=== PATIENT | female | born 1960 | race Caucasian/White ===

== ENCOUNTER 2016-06-24 18:26 | Emergency (ER) | payer SELFPAY ==
[~2016-06-24] VITALS: Ht 154.9 cm; Wt 104.5 kg
[~2016-06-24 18:26] MED LIST: CHOL400L PO; EST1 PO; FURO20TA PO; IMIP25TA7 PO; K20 PO; LISI20TA PO; [UNRECOGNIZED DRUG - CODE] PO
[2016-06-24 18:30] VITALS: BP 144/99; PULSE 96; RESP 18; O2SAT 99
--- NOTE | 2016-06-24 19:14 | ED.REPORT ---
HPI-Abd Pain F 40 and Over Date of Service Jun 24, 2016 ED Provider: Franc Dee DO Ms. Beal is a 55 y/o woman who presents today for abdominal bloating and vaginal bleeding. Abdominal pain in suprapubic. Small amount of vaginal that started yesterday. Bright right blood from vagina. Today only spotting. Sees it from wiping. Feels pressure in vagina for the past couple of months along with abdominal bloating. Gagging and vomiting more frequently in the past few months but has been present for 10 years. Had hysterectomy 10 years ago. She has dysuria, urine frequency, and urine urgency. No diarrhea or constipation. No melena, hematochezia, or hematemesis. No breast pain or nipple discharge. No vaginal discharge or odor. Pap smear yearly but had dysplasia years ago prior to hysterectomy. Pt reports a total hysterectomy and oophorectomy and believes cervix was removed as well. Not sexually active. No colonoscopy. Has been taking estrogen for 10 years but has noticed hot flashes. Nursing Notes Stated Complaint: BLEEDING Chief Complaint: Female Abdominal Pain Nursing Notes Reviewed: Yes Allergies: Coded Allergies: Penicillins (Verified Allergy, Unknown, HIVES, 06/24/16) Scheduled CHOLECALCIFEROL-Expunged Drug, Do Not Renew! (VITAMIN D3-Expunged Drug, Do Not Renew!) 400 Unit/5 Ml Liquid 400 UNIT PO DAILY Estradiol-Expunged Drug, Do Not Renew! (Estrace-Expunged Drug, Do Not Renew!) 1 Mg Tablet 1 MG PO DAILY Furosemide-Expunged Drug, Do Not Renew! (Lasix-Expunged Drug, Do Not Renew!) 20 Mg Tablet 20 MG PO AM Imipramine-Expunged Drug, Do Not Renew! (Imipramine-Expunged Drug, Do Not Renew! ) 25 Mg Tablet 200 MG PO HS Lisinopril-Expunged Drug, Do Not Renew! (Lisinopril-Expunged Drug, Do Not Renew! ) 20 Mg Tablet 20 MG PO DAILY Potassium Chl-Expunged Drug, Do Not Renew! (Q-Itp-Bclbsloh Drug, Do Not Renew!) 20 Meq Tab.er.prt 20 MEQ PO DAILY VITAMIN E-Expunged Drug, Do Not Renew! (VITAMIN E-Expunged Drug, Do Not Renew!) 200 Unit Capsule 400 UNIT PO DAILY General Time Seen by MD: 19:11 Chief Complaint Vaginal bleeding Hx Obtained From: Patient Sudden in Onset?: Yes Past Medical History Past Medical History cymbalta once daily Reports: Asthma, Hypertension Past Surgical History hysterectomy right elbow left knee cyst on neck removed Reports: Appendectomy, Tonsillectomy Smoking History Current Every Day Smoker (1/2 ppd for 25 years) Social History Alcohol Use: "Social" (1 x year) Drug Use: Denies drug use Ambulatory Status Independent Review of Systems Basic Review of Systems Eyes: Vision NL, No discharge ENT: Hearing NL, No pain, No nasal congestion, No pharyngeal pain Neurologic: NL mental status, No weakness, No numbness Psychiatric: Normal thought content Constitutional: Reports: Chills, Denies: Fever, Recent wt loss, Weakness - generalized Cardiovascular: Denies: Chest pain GI: Reports: Abdominal pain, Denies: Bloody/tarry stool, Constipation, Diarrhea, Dysphagia, Hematemesis, Hematochezia, Melena, Nausea Female: Reports: Dysuria, Pelvic pain, Urinary frequency, Urinary urgency, Vaginal bleeding - abnl, Denies: Incontinence Physical Exam Vital Signs Vital Signs (First) Date Time Temp Pulse Resp B/P Pulse Ox O2 Delivery O2 Flow Rate FiO2 06/24/16 18:30 37.2 96 18 144/99 99 Room Air Initial VS: Reviewed, Vital signs abnormal Head / Eyes: Atraumatic, Normocephalic, PERRL ENT: Mucous membranes moist, Conjunctiva normal, No scleral icterus Neck: Supple, Non-tender, Full range of motion Neurologic: Alert, Oriented, Nonfocal Psychiatric: Mood/affect normal, Behavior normal, Normal thought content Respiratory / Chest: Breath sounds NL, Breath sounds = bilat, No respiratory distress, No rales, No rhonchi, No wheezing Cardiovascular: Heart rate NL, Regular rhythm, Heart sounds NL, No gallop, No murmurs, No rubs Abdomen: Soft, No guarding, No rebound, BS normoactive Tenderness/Guarding/Rebound: Positive: Tender suprapubic Female Genitourinary: Curriculum Developer present, External genitalia NL, No bleeding, No discharge, No cervical motion tend (pt started retching during pelvic exam), No foreign body, No adnexal mass, No uterine mass, Perineal skin NL Interpretation & Diagnostics Interpretation & Diagnostics: CT abdomen and pelvis with contrast: IMPRESSION: 1. Cholelithiasis. 2. Hepatic steatosis. 3. Small hiatal hernia. 4. Status post hysterectomy. Dictated by: Carly Medrano MD, PhD on 06/24/2016 at 21:18 Approved by: Carly Medrano MD, PhD on 06/24/2016 at 21:18 Lab Results Interpretation Result Diagram: 06/24/16 1911 06/24/16 1911 Test 06/24/16 19:11 06/24/16 19:53 White Blood Count 8.4th/mm3 (3.8-10.1) Red Blood Count 4.87mil/mm3 (3.90-5.20) Hemoglobin 14.2g/dL (12.0-15.6) Hematocrit 41.7% (35.0-46.0) Mean Corpuscular Volume 85.6fL (81-100) Mean Corpuscular Hemoglobin 29.2pg (27.0-35.0) Mean Corpuscular Hemoglobin Concent 34.1% (32.0-37.0) Red Cell Distribution Width 12.7% (12.3-15.4) Platelet Count 250bil/L (150-400) Neutrophils (%) (Auto) 57.4% (40-74) Lymphocytes (%) (Auto) 29.0% (14-46) Monocytes (%) (Auto) 11.1% (4-12) Eosinophils (%) (Auto) 1.9% (0-5) Basophils (%) (Auto) 0.4% (0-3) Sodium Level 136mEq/L (134-144) Potassium Level 4.2mEq/L (3.5-5.2) Chloride Level 98mEq/L (97-108) Carbon Dioxide Level 24mmol/L (18-29) Blood Urea Nitrogen 14mg/dL (6-24) Creatinine 0.68mg/dL (0.57-1.00) Estimat Glomerular Filtration Rate 129mL/min (>59) Glucose Level 160mg/dL (60-99) Calcium Level 9.5mg/dL (8.5-10.1) Total Bilirubin 0.3mg/dL (0.0-1.2) Aspartate Amino Transf (AST/SGOT) 20U/L (0-50) Alanine Aminotransferase (ALT/SGPT) 30U/L (0-32) Alkaline Phosphatase 75U/L (25-150) Total Protein 7.4g/dL (6.4-8.4) Albumin 4.0g/dL (3.4-5.0) Hold [place] Top Tube Received (Received) Urine Color Yellow (YELLOW) Urine Appearance Hazy (CLEAR,HAZY) Urine pH 5.5 (5.0-8.0) Urine Specific [place] 1.024 (1.003-1.035) Urine Protein Negativemg/dL (NEG,TRACE) Urine Glucose (UA) Negativemg/dL (NEGATIVE) Urine Ketones Negativemg/dL (NEGATIVE) Urine Occult Blood Negative (NEGATIVE) Urine Nitrite Negative (NEGATIVE) Urine Bilirubin Negative (NEGATIVE) Urine Urobilinogen Normalmg/dL (NORMAL) Urine Leukocyte Esterase Small (NEGATIVE) Urine RBC 0-2/hpf (0-2) Urine WBC 6-10/hpf (0-5) Urine Epithelial Cells Moderate/hpf (NONE-MOD) Urine Crystals None seen (NONE SEEN) Urine Bacteria Moderate/hpf (NONE-FEW) Urine Hyaline Casts None/lpf (NONE) Urine Granular Casts None seen (NONE SEEN) Urine Waxy Casts None seen (NONE SEEN) Urine Red Blood Cell Casts None seen (NONE SEEN) Urine White Blood Cell Casts None seen (NONE SEEN) Urine Mucus None seen (None Seen) Urine Trichomonas None seen (NONE SEEN) Urine Yeast None (NONE SEEN) Urinalysis Comment None Urine Culture Reflexed Indicated Re-Eval/Medical Decision Med Decision/Clinical Course 1. Vaginal bleeding -CBC WNL -No vaginal bleeding visualized during exam 2. Vomiting -CMP WNL -CT abdomen and pelvis with contrast showed a gallstone and fatty liver Discharge & Departure Primary Impression: Vaginal bleeding Additional Impression: Nausea & vomiting Vomiting type: unspecified Vomiting Intractability: non-intractable Qualified Code: R11.2 - Nausea with vomiting, unspecified Disposition: Home Discharge Condition All VS Reviewed: Yes Condition: Stable Patient Instructions: Cholelithiasis (GEN) Additional Instructions: The CT scan done today of your abdomen and pelvis showed 1 gallstone in your gallbladder and fatty liver. Try to avoid fatty food and greasy, fried food in your diet. Watch for right sided abdominal pain, fever, chills, and persistent vomiting. Take hydrocodone-acetaminophen 5 mg/325 mg 1-2 tablets by mouth every 6 hours as needed for pain. Do not take with Tylenol, alcohol, other drugs, or while driving. You can take ondansetron 8 mg dissolve 1 tablet on your tongue every 12 hours as needed for nausea. Follow up with your home health specialist to further discuss the vaginal bleeding in 1 week. I have referred you to gastroenterology for the gagging and vomiting that you have been experiencing. You will be notified if your urine culture shows that you have a bladder infection and need antibiotics. Thank you for your patience today. Referrals: Savana Bailey (PCP) Mary Díaz MD 1 Week Vaginal bleeding for 2 days and pelvic pain [facility] GASTROINTESTINAL Other Chronic, worsening nausea and vomiting Attending Statement I personally took a history performed a physical examination per I concur with the note above. Pain is not adequately treated. Acute surgical emergency has been ruled out. Patient is comfortable and feels ready to be discharged home. Short course of opiates and close outpatient follow-up recommended. copies to: Mary Díaz MD, Marissa L DO Jun 24, 2016 19:14 Franc Dee DO Jun 26, 2016 18:22
[2016-06-24 19:24] LABS: BASOPHILS % (AUTO) 0.4 % (0-3); EOSINOPHILS % (AUTO) 1.9 % (0-5); MONOCYTES % (AUTO) 11.1 % (4-12); Mean Corpuscular Hemoglobin 29.2 pg (27.0-35.0); Mean Corpuscular Volume 85.6 fL (81-100); NEUTROPHILS % (AUTO) 57.4 % (40-74); Platelet Count 250 bil/L (150-400)
[2016-06-24 20:05] LABS: APPEARANCE,URINE HAZY (CLEAR,HAZY); COLOR,URINE YELLOW (YELLOW); OCCULT BLOOD,URINE NEGATIVE (NEGATIVE); PH,URINE 5.5 (5.0-8.0); UROBILINOGEN,URINE NORMAL (NORMAL)
--- NOTE | 2016-06-24 21:20 | DRSVH ---
PROCEDURE: CT ABDOMEN AND PELVIS WITH CONTRAST ([id number]) INDICATIONS: vaginal bleeding, pelvic pain, vomiting TECHNIQUE: After the administration of intravenous contrast, 5 mm thick sections acquired from the diaphragm to the symphysis. 5 mm coronal and sagittal reformats were acquired. For radiation dose reduction, the following was used: automated exposure control, adjustment of mA and/or kV according to patient siz e. COMPARISON: None. FINDINGS: Image quality: Excellent. ABDOMEN: Lung bases: Lung bases are clear. Heart size is normal. Solid organs: Liver and spleen are normal in size and enhancement. Diffuse fatty infiltration the li jostin is noted. Gallbladder contains a calcified gallstone.. Biliary system is non dilated. Pancreas enhances normally. No adrenal nodules. Kidneys demonstrate normal size and enhancement, without hyd ronephrosis. Peritoneum and bowel: Bowel loops demonstrate normal wall thickness and caliber. No free fluid or a ir. Nodes and vessels: No retroperitoneal or mesenteric adenopathy by size criteria. Aorta and inferior vena cava are normal in size. Miscellaneous: No ventral hernias. PELVIS: Genitourinary: Bladder wall thickness is normal. Uterus and adnexa are surgically absent. Miscellaneous: No inguinal hernias or adenopathy. Bones: No suspicious bony lesions. No vertebral body compression fractures. Spine degenerative disc disease and facet arthropathy noted. Grade 1 L5-S1 isthmic spondylolisthesis noted. IMPRESSION: 1. Cholelithiasis. 2. Hepatic steatosis. 3. Small hiatal hernia. 4. Status post hysterectomy. Dictated by: Carly Medrano MD, PhD on 06/24/2016 at 21:18 Approved by: Carly Medrano MD, PhD on 06/24/2016 at 21:18
[2016-06-24] MEDS ORDERED: _HYDROcodone/APAP 5-325 mg Tablet PO PRN (22:00)
[2016-06-24 23:02] VITALS: BP 145/92; PULSE 94; RESP 16; O2SAT 97
== END 2016-06-24 23:00 | disposition home or self-care (01) ==
LOC: SED 18:26
DX: N93.9 Abnormal uterine and vaginal bleeding, unspecified (principal); R11.2 Nausea with vomiting, unspecified; R30.0 Dysuria; R35.0 Frequency of micturition; R39.15 Urgency of urination; J45.909 Unspecified asthma, uncomplicated; I10 Essential (primary) hypertension; F17.200 Nicotine dependence, unspecified, uncomplicated; Z90.711 Acquired absence of uterus with remaining cervical stump; Z88.0 Allergy status to penicillin
CPT/HCPCS: 36415; 74177; 80053; 81000; 85025; 87086; 87088; 99284; Q9967

== ENCOUNTER 2016-10-18 10:06 | Inpatient (IN) | payer SELFPAY ==
[2016-10-18] VITALS (8 sets, daily range): BP systolic 121–153; BP diastolic 58–86; PULSE 81–110; RESP 16–20; O2SAT 92–97
[~2016-10-18] VITALS: Ht 154.9 cm; Wt 110.2 kg
[2016-10-18] MEDS ORDERED: 0.9% Sodium Chloride 1,000 ML IV ONE (10:29)
[2016-10-18] MEDS ORDERED: Ondansetron 2 mg/mL 2 mL Inj IVPUSH ONE (10:30)
--- NOTE | 2016-10-18 10:33 | ED.REPORT ---
HPI-Abd Pain F 40 and Over Date of Service October 18, 2016 ED Provider: Gavin Horne MD 56 y/o female with a hx of HTN presents to the ED complaining of waxing and waning abdominal pain, onset last night. She describes the pain as cramping and burning sensation. She rates the pain significantly more than 10 out of severity and reports that laying down flat exacerbates her pain. Associated sx include 2-3 episodes of bloody diarrhea, nausea, vomiting, diaphoresis, left leg swelling, and facial swelling. The pt denies any recent travels or contacts with similar sx including diarrhea. Nursing Notes Stated Complaint: BLOODY STOOL,ABD PAIN,VOMITING Chief Complaint: Female Abdominal Pain Nursing Notes Reviewed: Yes ([employer] not reconciled) Allergies: Coded Allergies: Penicillins (Verified Allergy, Unknown, HIVES, 06/24/16) General Time Seen by MD: 10:29 Chief Complaint Abdominal pain Hx Obtained From: Patient Arrived By: Walk-in Sudden in Onset?: Yes Onset Occurred: Yesterday Symptom Duration: Waxes and wanes Location: : LLQ: RLQ Quality: Painful Radiation: : Does not radiate Severity: Current: Moderate Severity: Maximum: Severe Recent Healthcare: Recent doctor visit Similar Sx Previous: No Past Medical History Past Medical History Notes: cymbalta once daily Past Medical History Reports: Asthma, Hypertension Past Surgical History hysterectomy right elbow left knee cyst on neck removed Emergent cardiac catheterization December 2011 with concern for initial ST segment elevation DC on EKG, but there was minimal coronary disease, EF was normal, and was elevated but thought secondary to vasospasm Reports: Appendectomy, Tonsillectomy Smoking History Current Every Day Smoker Social History Alcohol Use: "Social" Drug Use: Denies drug use Ambulatory Status Independent Review of Systems GI: Reports: Abdominal pain, Diarrhea (Bloody), Nausea, Vomiting Musculoskeletal: Reports: Extremity swelling Complete sys rev & neg: except as marked. Skin: Reports Diaphoresis Physical Exam Vital Signs Vital Signs (First) Date Time Temp Pulse Resp B/P Pulse Ox O2 Delivery O2 Flow Rate FiO2 10/18/16 10:12 36.7 110 20 153/86 97 10/18/16 15:49 Room Air Initial VS: Reviewed, Vital signs abnormal (tachycardic) Head / Eyes: Atraumatic, Normocephalic, PERRL ENT: Mucous membranes moist, Conjunctiva normal, No scleral icterus Neck: Supple, Non-tender, Full range of motion Skin: Warm, Dry, No cyanosis Neurologic: Alert, Oriented, Nonfocal General/Constitutional: Awake, Alert, Cooperative Distress / Hydration: Positive: Distress moderate Behavior: Positive: Tearful Uncomfortable Cardiovascular: Regular rhythm, Heart sounds NL, No murmurs Heart Rate / Rhythm: Positive: Tachycardia No visible DVT Mild left leg edema Abdomen: Atraumatic, Soft, No guarding, No rebound Tenderness/Guarding/Rebound: Positive: Tender LLQ... (Mild), Negative: Tender flank L, Tender flank R Lower Extremity / Pelvis / MS: Atraumatic, Full range of motion, No deformity, Neurologic intact, Vascular intact Interpretation & Diagnostics PROCEDURE: US VEINOUS LEG DUPLEX UNILATERAL, LEFT IMPRESSION: 1. No definite evidence of deep venous thrombosis in the left lower extremity with evaluation slightly limited as described. 2. Slightly thick walled loop of bowel in the left lower quadrant visualized in the area of pain of indeterminate clinical significance. Recommend correlation clinically and further evaluation with CT if indicated. 3. Heterogeneous fluid collection demonstrated medial to the left knee is incompletely evaluated on ultrasound. Differential includes a postsurgical seroma or hematoma given history of prior surgery as well as a loculated joint effusion. A Whitman's cyst is less likely given the marked location. Recommend correlation clinically and further evaluation with MRI if indicated. Dictated by: Michael Nunn M.D. on 10/18/2016 at 11:39 Approved by: Michael Nunn M.D. on 10/18/2016 at 11:45 Lab Results Interpretation Result Diagram: 10/18/16 1053 10/18/16 1053 Test 10/18/16 10:53 10/18/16 12:09 White Blood Count 11.5th/mm3 (3.8-10.1) Red Blood Count 4.87mil/mm3 (3.90-5.20) Hemoglobin 14.6g/dL (12.0-15.6) Hematocrit 42.2% (35.0-46.0) Mean Corpuscular Volume 86.7fL (81-100) Mean Corpuscular Hemoglobin 30.0pg (27.0-35.0) Mean Corpuscular Hemoglobin Concent 34.6% (32.0-37.0) Red Cell Distribution Width 12.8% (12.3-15.4) Platelet Count 323bil/L (150-400) Neutrophils (%) (Auto) 77.2% (40-74) Lymphocytes (%) (Auto) 14.3% (14-46) Monocytes (%) (Auto) 6.8% (4-12) Eosinophils (%) (Auto) 1.0% (0-5) Basophils (%) (Auto) 0.4% (0-3) Sodium Level 135mEq/L (134-144) Potassium Level 4.0mEq/L (3.5-5.2) Chloride Level 96mEq/L (97-108) Carbon Dioxide Level 22mmol/L (18-29) Blood Urea Nitrogen 15mg/dL (6-24) Creatinine 0.63mg/dL (0.57-1.00) Estimat Glomerular Filtration Rate 140mL/min (>59) Glucose Level 152mg/dL (60-99) Lactic Acid Level 2.5mmol/L (0.4-2.0) Calcium Level 9.7mg/dL (8.5-10.1) Magnesium Level 1.8mg/dL (1.6-2.6) Total Bilirubin 0.5mg/dL (0.0-1.2) Aspartate Amino Transf (AST/SGOT) 17U/L (0-50) Alanine Aminotransferase (ALT/SGPT) 21U/L (0-32) Alkaline Phosphatase 77U/L (25-150) Total Protein 7.8g/dL (6.4-8.4) Albumin 4.3g/dL (3.4-5.0) Lipase 23U/L (13-60) Urine Color Yellow (YELLOW) Urine Appearance Hazy (CLEAR,HAZY) Urine pH 6.0 (5.0-8.0) Urine Specific [place] 1.020 (1.003-1.035) Urine Protein Negativemg/dL (NEG,TRACE) Urine Glucose (UA) Negativemg/dL (NEGATIVE) Urine Ketones Negativemg/dL (NEGATIVE) Urine Occult Blood Negative (NEGATIVE) Urine Nitrite Negative (NEGATIVE) Urine Bilirubin Negative (NEGATIVE) Urine Urobilinogen Normalmg/dL (NORMAL) Urine Leukocyte Esterase Negative (NEGATIVE) Urine RBC 0-2/hpf (0-2) Urine WBC 0-5/hpf (0-5) Urine Epithelial Cells Few/hpf (NONE-MOD) Urine Crystals None seen (NONE SEEN) Urine Bacteria Moderate/hpf (NONE-FEW) Urine Hyaline Casts None/lpf (NONE) Urine Granular Casts None seen (NONE SEEN) Urine Waxy Casts None seen (NONE SEEN) Urine Red Blood Cell Casts None seen (NONE SEEN) Urine White Blood Cell Casts None seen (NONE SEEN) Urine Mucus Present (None Seen) Urine Trichomonas None seen (NONE SEEN) Urine Yeast None (NONE SEEN) Urinalysis Comment None Urine Culture Reflexed Indicated Lab Results Interpretation: CBC positive leukocytosis CMP normal Lactic acid marginally elevated Urinalysis negative Stool gastrointestinal PCR panel ordered, patient has not yet provided a stool sample for testing thus far CT Abd / Pelvis Interpretation IMPRESSION: 1. Distal colonic inflammation and wall thickening is compatible with colitis, which may be infectious or inflammatory (ulcerative colitis/Crohn's) and clinical correlation is recommended. No diverticula are evident to suggest diverticulitis. 2. No bowel obstruction. 3. No abscess. 4. Moderate-sized hiatal hernia. 5. Cholelithiasis and hepatic steatosis. 6. Grade 1/2 spondylolisthesis at L5-S1 related to bilateral L5 pars defects. Dictated by: Aj Phillips M.D. on 10/18/2016 at 12:05 Approved by: Aj Phillips M.D. on 10/18/2016 at 12:11 Study type: Abdominal CT IV contrast Interpretation / Wet Read by: Interpret - Radiologist Re-Eval/Medical Decision Med Decision/Clinical Course This is a 56-year-old lady presents with acute onset of diarrhea and abdominal pain worsening since last night. After the first episode or 2 of diarrhea, she did have blood in her stools has persisted since. She reports 6-7 episodes of diarrhea. She has terrible left lower abdominal pain cramping, she is also wondering if there is left leg may be marginally swollen. She has no chest pain shortness of breath. She denies fevers or chills. She works as a cook, but has no known diarrheal illness exposures, no recent travel history, no recent antibiotic exposure, no recent GI procedure exposure, no Hospital/ healthcare environment exposure in terms of risk factors for pathogens. On exam she is in some significant pain, mild left lower quadrant tenderness. I do not appreciate externally visible left lower STEMI swelling, given a concern ultrasound leg was obtained was negative. Her blood work is notable for mild leukocytosis and a marginal lactic acid elevation. CT imaging was pursued and was notable for findings suggestive of colitis, the radiologist suggesting inflammatory versus infectious. A stool PCR panel has been ordered, but the patient is not yet been able to produce a stool sample here. She has however required multiple titrated doses of pain medicines and fluids-although she is ultimately improving. Given the severity of discomfort admission is warranted. Discussed the case with GI. The plan is supportive care pending the results of the PCR. The PCR is negative, then formal GI consultation is indicated to help further verify there is any chance this could be ischemic in origin, although the distribution is not classic according to the radiologist. I have communicated this to the admitting hospitalist, we will contact GI as results returned. In the meantime continue supportive care is warranted and the patient is improved at time of admission. Source of Hx: Old records Re-Evaluation/Progress : Time of Eval: 14:04 Re-Evaluation/Progress Note: Pt rechecked. Discussed lab, imaging results and plan to admit. Pt understands and agrees with the plan for admission. All questions addressed. Consultation : Referral / Consult Name: Roberto Lopes MD Consulted With: Hospitalist Call Returned at: 13:57 [employer] Analyst: Will see patient, Agrees with eval, Agrees with plan, Accepts admit Differential Diagnosis: Positive: Acute abdominal pain, Negative: Abdominal aortic aneurysm, Appendicitis, Bowel obstruction, Diabetic ketoacidosis, Ectopic , Esophageal rupture, Gun shot wound abdomen, Intrauterine , Pancreatitis, Peritonitis, Pyelonephritis, Stab wound abdomen, Urinary obstruction, Volvulus Counseled Regarding: Diagnosis, Lab results, Need for admission Discharge & Departure Primary Impression: Colitis Disposition: ADMITTED TO HOSPITAL Referrals: Savana Bailey (PCP) Scribe Attestation Portions of this note were transcribed by Lokesh Taylor. I, , personally performed the history, physical exam and medical decision-making;I reviewed and confirmed the accuracy of the information in the transcribed note. Signed by Fermín Mays. 10/18/16 14:05 copies to: Savana Bailey Matthew F MD October 18, 2016 10:33 Lokesh Taylor October 18, 2016 10:40
[2016-10-18] MEDS: HYDROmorphone 0.5 mg/0.5 mL iSecure Syringe IVPUSH PRN ×4 (10:52→15:15)
[2016-10-18 11:02] LABS: BASOPHILS % (AUTO) 0.4 % (0-3); MONOCYTES % (AUTO) 6.8 % (4-12); Mean Corpuscular Volume 86.7 fL (81-100); NEUTROPHILS % (AUTO) 77.2 % (40-74); Platelet Count 323 bil/L (150-400)
[2016-10-18 11:26] LABS: Magnesium 1.8 mg/dL (1.6-2.6)
--- NOTE | 2016-10-18 11:46 | DRSVH ---
PROCEDURE: US VEINOUS LEG DUPLEX UNILATERAL, LEFT INDICATIONS: LLE swelling ro DVT TECHNIQUE: Real-time imaging, as well as color and pulse Doppler interrogation, were performed of the lower extr emity deep veins from the inguinal ligament to the popliteal fossa. COMPARISON: None. FINDINGS: Study limited due to body habitus and patient's inability to tolerate compression. The de ep veins are grossly free of intraluminal thrombus. Color and pulse Doppler demonstrate normal phasi c intraluminal flow. There is normal augmentation response to distal compression maneuver. Within the left lower quadrant in the area of pain, there is a thickwalled loop of bowel noted of ind eterminate clinical significance. There is a heterogeneous fluid collection demonstrated medial to the left knee measuring approximatel y 7.4 x 5.2 x 2.1 cm. IMPRESSION: 1. No definite evidence of deep venous thrombosis in the left lower extremity with evaluation slight ly limited as described. 2. Slightly thick walled loop of bowel in the left lower quadrant visualized in the area of pain of indeterminate clinical significance. Recommend correlation clinically and further evaluation with CT if indicated. 3. Heterogeneous fluid collection demonstrated medial to the left knee is incompletely evaluated on ultrasound. Differential includes a postsurgical seroma or hematoma given history of prior surgery a s well as a loculated joint effusion. A Whitman's cyst is less likely given the marked location. Aleksandr mmend correlation clinically and further evaluation with MRI if indicated. Dictated by: Michael Nunn M.D. on 10/18/2016 at 11:39 Approved by: Michael Nunn M.D. on 10/18/2016 at 11:45
[2016-10-18 12:31] LABS: APPEARANCE,URINE HAZY (CLEAR,HAZY); COLOR,URINE YELLOW (YELLOW); OCCULT BLOOD,URINE NEGATIVE (NEGATIVE); UROBILINOGEN,URINE NORMAL (NORMAL)
--- NOTE | 2016-10-18 13:12 | DRSVH ---
PROCEDURE: CT ABDOMEN AND PELVIS WITH CONTRAST (PNL-7102) INDICATIONS: LLQ Abd pain TECHNIQUE: After the administration of oral and intravenous contrast, 5 mm thick sections acquired from the diap hragms to the symphysis. 5 mm thick coronal and sagittal reformats were performed. For radiation do se reduction, the following was used: automated exposure control, adjustment of mA and/or kV accordi ng to patient size. COMPARISON: [facility], CT, CT ABD PELVIS W CON, 06/24/2016, 20:42. FINDINGS: Image quality: Diagnostic. ABDOMEN: Lung bases: Lung bases are clear. Heart size is normal. Solid organs: The liver is hypodense when compared to the spleen. No intrahepatic or extrahepatic bi liary dilatation is evident. There is a moderate-sized singular peripherally calcified gallstone wit hin the gallbladder measuring up to 2.1 cm (image 31, series 2). Spleen, pancreas, adrenals, and kid neys are within normal limits. No hydronephrosis of the kidneys is evident. No renal calculi are se en. Peritoneum and bowel: There is a moderate-sized hiatal hernia. Otherwise, the stomach, duodenum, and remainder of the small bowel loops are nondilated. Moderate thickening of the wall of the descendin g and sigmoid colon is identified with mild surrounding edema within the adjacent soft tissues. No d efinite diverticula are evident. There is no free fluid, loculated fluid collection, or free air dora reciated within the abdomen or pelvis. Nodes and vessels: No retroperitoneal or mesenteric adenopathy. Aorta and inferior vena cava are no rmal in caliber. Mild aortic atherosclerosis is present. Bones: Moderate degenerative changes of the thoracolumbar spine are most pronounced at L5-S1. There is prominent disc height loss, endplate sclerosis, and vacuum disc phenomenon at L5-S1 with correspon ding grade 1/2 anterolisthesis related to bilateral L5 pars defects. No acute fractures or suspiciou s osseous lesions of the imaged spine are evident. PELVIS: Genitourinary: Bladder wall thickness is normal. Miscellaneous: No inguinal hernias or adenopathy. No free fluid or loculated fluid collection is id entified. Bones: No suspicious bony lesions. No acute pelvic fractures. IMPRESSION: 1. Distal colonic inflammation and wall thickening is compatible with colitis, which may be infectio us or inflammatory (ulcerative colitis/Crohn's) and clinical correlation is recommended. No divertic norma are evident to suggest diverticulitis. 2. No bowel obstruction. 3. No abscess. 4. Moderate-sized hiatal hernia. 5. Cholelithiasis and hepatic steatosis. 6. Grade 1/2 spondylolisthesis at L5-S1 related to bilateral L5 pars defects. Dictated by: Aj Phillips M.D. on 10/18/2016 at 12:05 Approved by: Aj Phillips M.D. on 10/18/2016 at 12:11
[2016-10-18] MEDS ORDERED: Polyethylene Glycol (PEG) 17 Gm Powder PO PRN (14:20)
[2016-10-18] MEDS ORDERED: Alum-Mag Hydrox-Simeth 30 mL Suspension PO PRN (14:20)
[2016-10-18] MEDS ORDERED: Ondansetron 2 mg/mL 2 mL Inj IVPUSH PRN (16:35)
[2016-10-18] MEDS ORDERED: HYDROmorphone 0.5 mg/0.5 mL iSecure Syringe IVPUSH PRN (16:35)
--- NOTE | 2016-10-18 16:37 | PCM.HPMED ---
Subjective Date of Service October 18, 2016 Primary Provider: Admitting Physician: Primary Care Physician: Lorna Alfaro-Job Casillas Attending Physician: Admit Status: From the Emergency Department, Full Admit, Admit to Red Team Chief Complaint: Lower abdominal pain/14 hr bloody Diarrhea/14 hr History of Present Illness: 56-year-old lady with past medical history of hypertension, asthma came to emergency room due to abdominal pain and bloody diarrhea of 14 hrs. patient states she developed sudden onset of abdominal pain,L>R, intermittent last night at 9 PM. She then developed 2 episodes of watery diarrhea which was mixed with blood on the second episode. Did not have diarrhea today. Had nausea and one episode of vomiting. Denies fever or chills. Denies contact with person with similar symptoms. No recent travel ED course: Initial HR 110, BP 153/86, afebrile.LLQ tenderness. WBC 11.5, lactate 2.5, other labs unremarkable CT consistent with distal colitis. GI contacted Pain medication given, IV fluids started. Stool PCR requested. Admission requested for colitis Review of Systems: Comprehensive review of systems performed, pertinent positives and negatives included in history of present illness Allergies Coded Allergies: Penicillins (Verified Allergy, Unknown, HIVES, 06/24/16) Home Medications Vitamin D3 daily Estradiol 1 mg daily Furosemide 20 mg by mouth daily Lisinopril 20 mg by mouth daily Vitamin E 200 units daily imipramine PMH Hypertension Remote History of asthma Surgical History Hysterectomy Appendectomy Tonsillectomy Right elbow surgery Knee surgery Family History Reviewed and unremarkable. Negative for colon cancer Social History Smoking Status: Current Every Day Smoker Exam Vital Signs Vital Sign - Last Date Time Temp Pulse Resp B/P Pulse Ox O2 Delivery O2 Flow Rate FiO2 10/18/16 15:49 36.8 89 16 135/58 95 Room Air Exam Gen. patient is lying comfortably in hospital bed HEENT: Head is normocephalic atraumatic, Pupils equal and reactive, extraocular movements intact, Lungs clear to auscultation bilaterally Heart regular rate and rhythm without murmurs gallops or rubs Abdomen LLQ abdominal direct tenderness. No rebound tenderness. Positive bowel sounds Extremities pulses are present dorsalis pedis posterior tibialis and radial. tSkin is warm and dry there are no rashes, Psych alert and oriented to person place and time Neuro cranial nerves II through XII are grossly intact Lymph: There is no lymphadenopathy appreciated in the cervical supra infraclavicular regions : no wright Lab and Diagnostics Result Diagram: 10/18/16 1053 10/18/16 1053 X-Rays, CTs and MRIs PROCEDURE: CT ABDOMEN AND PELVIS WITH CONTRAST ([id number]) INDICATIONS: LLQ Abd pain IMPRESSION: 1. Distal colonic inflammation and wall thickening is compatible with colitis, which may be infectious or inflammatory (ulcerative colitis/Crohn's) and clinical correlation is recommended. No diverticula are evident to suggest diverticulitis. 2. No bowel obstruction. 3. No abscess. 4. Moderate-sized hiatal hernia. 5. Cholelithiasis and hepatic steatosis. 6. Grade 1/2 spondylolisthesis at L5-S1 related to bilateral L5 pars defects. Dictated by: Aj Phillips M.D. on 10/18/2016 at 12:05 Assessment & Plan 56-year-old lady with past medical history of hypertension, asthma came to emergency room due to abdominal pain and bloody diarrhea of 14 hrs. # colitis,acute,poa -Infectious versus ischemic, likely infectious but ischemic also possible given sudden onset and slightly elevated lactate -Continue IV fluid with NS 100ml/h -hold off antibiotics until stool PCR is done per GI. GI considering colonoscopy if stool PCR unrevealing of infection -Stool PCR pending -Telemetry, sinus rhythm in ED -follow lactate # History of hypertension, chronic -Hold home medications given npo -BP Stable # Remote history of asthma -Stable full code Patient admitted under inpatient status with expected length of stay > 2 midnights for severity of present symptoms, complexities of treatment plan and risk for adverse events copies to: [facility] Melaku MD October 18, 2016 16:37
[2016-10-18] MEDS: 0.9% Sodium Chloride 1,000 ML IV SCH (16:41)
[2016-10-18] MEDS ORDERED: CHOL400T PO (19:25)
[2016-10-18] MEDS ORDERED: VITA400C19 PO (19:25)
[2016-10-18] MEDS ORDERED: CITA20TA11 PO (19:25)
[2016-10-18] MEDS ORDERED: LISI-567 PO (19:25)
[2016-10-18] MEDS ORDERED: FUR20 PO (19:25)
[2016-10-18] MEDS ORDERED: ESTR1TAB24 PO (19:25)
[2016-10-18] MEDS ORDERED: IMIP50TA4 PO (19:25)
[2016-10-19] VITALS (8 sets, daily range): BP systolic 122–172; BP diastolic 73–88; PULSE 76–93; RESP 16–18; O2SAT 92–98
[2016-10-19] MEDS: 0.9% Sodium Chloride 1,000 ML IV SCH ×3 (00:17→16:44)
[2016-10-19] MEDS: Ondansetron 2 mg/mL 2 mL Inj IVPUSH PRN ×3 (04:43→09:34)
[2016-10-19 05:58] LABS: BASOPHILS % (AUTO) 0.1 % (0-3); EOSINOPHILS % (AUTO) 1.6 % (0-5); MONOCYTES % (AUTO) 10.2 % (4-12); Mean Corpuscular Hemoglobin 29.7 pg (27.0-35.0); NEUTROPHILS % (AUTO) 64.5 % (40-74); Platelet Count 246 bil/L (150-400)
[2016-10-19 06:23] LABS: Magnesium 1.7 mg/dL (1.6-2.6)
--- NOTE | 2016-10-19 09:49 | PCM.CHPMED ---
Subjective Date of Service: October 19, 2016 Primary Physician: Admitting Physician: Roberto Lopes MD Primary Care Physician: [facility] Attending Physician: Roberto Lopes MD Chief Complaint: Chief Complaint: Hematochezia History of Present Illness: 56-year-old anxious female with a history of hypertension and vaginal bleeding s /p hysterectomy months ago with negative workup who presents to emergency department due to increased crampy abdominal pain in the left lower quadrant with acute onset of hematochezia, nausea, and vomiting 1. Patient states that the pain began Tuesday evening with one episode of hematochezia and she presented to the ED on Tuesday morning with an additional episode. Overnight patient also had another episode of jacqui bright red bloody diarrhea without clots. Patient states that when this started she began to feel nauseous and had 1 nonbloody emesis, and diaphoresis was reported facial swelling. No fevers , chills, or other signs of systemic infection. Patient denies any close sick contacts. Patient's recent episode of vaginal bleeding was not worked up with CT of the abdomen with no identifiable cause. This occurred 10 years after the patient had a hysterectomy and salpingo-oophorectomy.? This was vaginal or rectal bleeding at this time. Today the patient denies fevers, chest pain, nausea, vomiting, diffuse abdominal pain, dizziness, or rectal pain. Patient does state that on palpation her left lower quadrant is moderately tender in that when she gets up from a chair she does experience lightheadedness. Patient denies any recent travel. Patient has never had a colonoscopy. Patient is on hormone therapy but denies any history of clots or irregular cardiac rhythms. Patient has never been on anticoagulation On admission the patient had a very mild leukocytosis which is now resolved, as well as a lactic acidosis 2.5 that is now resolved as well. CT was consistent with distal colitis, however PCR of the stool was negative for an infectious agent. Patient was given Dilaudid for pain but has not had an opioid in almost 24 hours Gyrus consult for evaluation. Review of Systems: See history of present illness PMH Past Medical History Hypertension Remote History of asthma Hx Any Other Health Problems?: NoHx Diabetes: No Surgical History Hysterectomy Appendectomy Tonsillectomy Right elbow surgery Knee surgery Home Medications Vitamin D3 daily Estradiol 1 mg daily Furosemide 20 mg by mouth daily Lisinopril 20 mg by mouth daily Vitamin E 200 units daily imipramine Allergies: Coded Allergies: Penicillins (Verified Allergy, Unknown, HIVES, 10/18/16) Family History Family History Mother of lung cancer Father when she was young Social History Hx Alcohol Use: NoHx Substance Use: No Smoking Status: Current Every Day Smoker (3-5 cigarettes a day) Living Arrangement: with Family Exam Vital Signs Vital Sign - Last Date Time Temp Pulse Resp B/P Pulse Ox O2 Delivery O2 Flow Rate FiO2 10/19/16 06:19 36.8 76 18 122/73 98 OxyMask 2.50 Intake and Output 10/18/16 10/18/16 10/19/16 Cumulative From/Thru 15:00 23:00 07:00 10/18/16 10:12 - 10/19/16 06:51 Intake Total 1000 ml 1474 ml 350 ml 2824 ml Output Total 0 ml 300 ml 300 ml Balance 1000 ml 1474 ml 50 ml 2524 ml Intake Oral 474 ml 350 ml 824 ml IV Total 1000 ml 1000 ml 2000 ml Output Urine Total 0 ml 300 ml 300 ml # Bowel Movements 0 1 1 Additional Information: General: Patient is awake but very anxious and emotional HEENT: Conjunctiva normal, no JVD, mucous membranes moist, no ulcerations in the mucosa Cardio: Regular rate and rhythm no murmurs rubs or gallops Respiratory: CTA bilaterally, no wheezes Abdomen: Obese, soft, no masses palpated, moderate tenderness in the left lower quadrant on palpation, no tenderness on the right, no rebound Extremities: No edema, pulses intact Psych: Very anxious and emotional Neuro: Grossly intact Lymphs no lymphadenopathy Lab and Diagnostics Result Diagram: 10/19/16 0540 10/19/16 0540 X-Rays, CTs and MRIs CT abdomen with contrast IMPRESSION: 1. Distal colonic inflammation and wall thickening is compatible with colitis, which may be infectious or inflammatory (ulcerative colitis/Crohn's) and clinical correlation is recommended. No diverticula are evident to suggest diverticulitis. 2. No bowel obstruction. 3. No abscess. 4. Moderate-sized hiatal hernia. 5. Cholelithiasis and hepatic steatosis. 6. Grade 1/2 spondylolisthesis at L5-S1 related to bilateral L5 pars defects. Dictated by: Aj Phillips M.D. on 10/18/2016 at 12:05 Assessment & Plan Assessment Problem list: Acute hematochezia with left lower quadrant abdominal pain Hyperglycemia Assessment/plan: 56-year-old female with acute onset abdominal pain in the left lower quadrant with jacqui bright red hematochezia that began 2 days ago, with now for reported episodes. PCR was negative for an infectious etiology and CT of the abdomen showed distal colitis no identifiable fat stranding or diverticula. Differential this point is somewhat broad including inflammatory bowel, unidentified polyp, hemorrhoids, unidentified infectious colitis, less likely bowel ischemia or even possibly a rectal ulcer. In any case the patient does not seem septic at this point with a normal white count today and has not received any antibiotics. It was felt that the patient has small increase in lactic acid on presentation that is also resolved. Current plan is to keep patient on liquid diet until late this morning when they plan for a flex sigmoidoscopy for evaluation. At some point the patient should undergo a full colonoscopy for additional evaluation or even just for screening. Thank you for allowing us to participate in the care of this patient. Problems: VTE Mechanical Devices: Intermittant Pneumatic CD Attending Statement Patient seen and examined. Agree with assessment and plan as described by Dr Claudio. There was a miscommunication this morning and the patient did not receive the requisite enemas prior to the planned flex sig. However, doing much better. Yesterday, pain was off the charts and today described as 3/10. Discussed the various colitides with patient and family. She and they were relieved to hear that i believe the most likely explanation to be ischemic colitis. B/c patient is improving, she is interested in deferring the flex sig and possibly not doing this. She is aware that she will ultimately need full colonoscopy. Depending on how she is getting on with dietary advancement, may be able to d/c home soon and we'll then plan an elective out patient full colon. Jf Claudio DO October 19, 2016 09:49 Robert Bojorquez MD October 19, 2016 12:44
[2016-10-19] MEDS ORDERED: oxyCODONE-Acetamin 5-325 mg Tablet PO PRN (09:55)
[2016-10-19] MEDS: HYDROcodone-APAP 5-325 mg Tablet PO PRN ×2 (15:30→20:09)
--- NOTE | 2016-10-19 21:22 | PCM.PNMED ---
Subjective Date of Service October 19, 2016 Subjective pain improved,diarrhea resolved.c.dif negative Exam Vital Signs Vital Sign - Last Date Time Temp Pulse Resp B/P Pulse Ox O2 Delivery O2 Flow Rate FiO2 10/19/16 18:29 36.8 93 18 150/88 98 Room Air 10/19/16 06:19 2.50 Intake and Output 10/18/16 10/18/16 10/19/16 Cumulative From/Thru 15:00 23:00 07:00 10/18/16 10:12 - 10/19/16 06:51 Intake Total 1000 ml 1474 ml 350 ml 2824 ml Output Total 0 ml 300 ml 300 ml Balance 1000 ml 1474 ml 50 ml 2524 ml Intake Oral 474 ml 350 ml 824 ml IV Total 1000 ml 1000 ml 2000 ml Output Urine Total 0 ml 300 ml 300 ml # Bowel Movements 0 1 1 Exam Gen. patient is lying comfortably in hospital bed HEENT: Head is normocephalic atraumatic, Pupils equal and reactive, extraocular movements intact, Lungs clear to auscultation bilaterally Heart regular rate and rhythm without murmurs gallops or rubs Abdomen LLQ abdominal direct tenderness. No rebound tenderness. Positive bowel sounds Extremities pulses are present dorsalis pedis posterior tibialis and radial. tSkin is warm and dry there are no rashes, Psych alert and oriented to person place and time Neuro cranial nerves II through XII are grossly intact Lymph: There is no lymphadenopathy appreciated in the cervical supra infraclavicular regions : no wright IVs and Medications Medications Reviewed: Medications were reviewed in detail Lab and Diagnostics Result Diagram: 10/19/16 0540 10/19/16 0540 X-Rays, CTs and MRIs PROCEDURE: CT ABDOMEN AND PELVIS WITH CONTRAST (PNL-7102) INDICATIONS: LLQ Abd pain IMPRESSION: 1. Distal colonic inflammation and wall thickening is compatible with colitis, which may be infectious or inflammatory (ulcerative colitis/Crohn's) and clinical correlation is recommended. No diverticula are evident to suggest diverticulitis. 2. No bowel obstruction. 3. No abscess. 4. Moderate-sized hiatal hernia. 5. Cholelithiasis and hepatic steatosis. 6. Grade 1/2 spondylolisthesis at L5-S1 related to bilateral L5 pars defects. Dictated by: Aj Phillips M.D. on 10/18/2016 at 12:05 Assessment & Plan 56-year-old lady with past medical history of hypertension, asthma came to emergency room due to abdominal pain and bloody diarrhea of 14 hrs. # colitis,acute,poa -Infectious versus ischemic, likely infectious but ischemic also possible given sudden onset and slightly elevated lactate -Continue IV fluid with NS 100ml/h -hold off antibiotics , stool PCR negative. GI initially considered sigmoidoscopy but patient improving .held off sigmoidoscopy -Telemetry, sinus rhythm in ED -c.dif negative # History of hypertension, chronic -resume -BP Stable # Remote history of asthma -Stable full code Patient admitted under inpatient status with expected length of stay > 2 midnights for severity of present symptoms, complexities of treatment plan and risk for adverse events disposition:possible discharge home if continues to improve VTE Mechanical Devices: Intermittant Pneumatic CD Roberto Lopes MD October 19, 2016 21:22
[2016-10-20 00:35] VITALS: BP 115/69; PULSE 80; RESP 16; O2SAT 94
[2016-10-20] MEDS: Ondansetron 2 mg/mL 2 mL Inj IVPUSH PRN ×3 (02:28→21:50)
[2016-10-20] MEDS: 0.9% Sodium Chloride 1,000 ML IV SCH ×2 (02:44→16:08)
[2016-10-20] MEDS: HYDROcodone-APAP 5-325 mg Tablet PO PRN ×4 (05:34→21:01)
[2016-10-20 06:40] VITALS: BP 146/77; PULSE 82; RESP 16; O2SAT 94
--- NOTE | 2016-10-20 10:23 | PROG NOTE ---
[address] [address] PROGRESS NOTE PATIENT: DEON LUNDY : 1960 MR#: [id number] ADMIT: 10/18/2016 JOB ID: [id number] DATE: 10/20/2016 SUBJECTIVE: The patient is still experiencing abdominal discomfort and bloating, but advanced her diet far beyond what I had recommended. They served her sausage this morning and she consumed it. She is rather uncomfortable as a consequence at the moment. I explained again that this is probably ischemic colitis and that we should expect slow but steady clinical improvement over the next couple of weeks. The patient is still a little on the sense as to whether she would like to pursue flex sig here in the hospital versus continued to convalesce and pursue elective outpatient colonoscopy in the next 2-3 weeks. OBJECTIVE: Blood pressure 146/77, pulse 82, afebrile. The patient is in no acute distress, conversational. She looks a little more apprehensive this morning. LABORATORIES: None today. ASSESSMENT AND RECOMMENDATIONS: A 56-year-old female with acute symptoms of what appeared to be left-sided colitis. This is most likely ischemic in nature. She should have diabetic diet, but really in essence, soft smoothie consistency, and avoid meats or raw sprigs of vegetable or fruit matter. I encouraged smoothies. Continue hydration orally. Continue analgesia as needed. I think it would be reasonable to watch her one more night, in that she is feeling a little uncomfortable this morning (although this is almost certainly a consequence of too aggressive advancement on the dietary front). I will continue to follow with you, and once again decide on inpatient flex sig versus discharge home tomorrow.
[2016-10-20 10:24] VITALS: BP 147/88; PULSE 82; RESP 16; O2SAT 98
[2016-10-20 10:53] LABS: BASOPHILS % (AUTO) 0.3 % (0-3); EOSINOPHILS % (AUTO) 1.3 % (0-5); MONOCYTES % (AUTO) 8.6 % (4-12); Mean Corpuscular Hemoglobin 29.7 pg (27.0-35.0); Mean Corpuscular Volume 87.6 fL (81-100); NEUTROPHILS % (AUTO) 65.2 % (40-74); Platelet Count 265 bil/L (150-400)
[2016-10-20 11:16] VITALS: PULSE 78
[2016-10-20 15:43] VITALS: BP 173/98; PULSE 68; RESP 17; O2SAT 99
[2016-10-20] MEDS: HYDROmorphone 1 mg/mL Inj IVPUSH PRN (16:51)
--- NOTE | 2016-10-20 18:15 | PCM.PNMED ---
Subjective Date of Service October 20, 2016 Subjective Abdominal pain was improving yesterday. Started to have pain today again. She has episodes of formed stool with blood mixed. Afebrile. She had one episode of vomiting this morning. Flex sigmoidoscopy remains on hold per GI pending clinical course Exam Vital Signs Vital Sign - Last Date Time Temp Pulse Resp B/P Pulse Ox O2 Delivery O2 Flow Rate FiO2 10/20/16 15:43 36.6 68 17 173/98 99 Room Air 10/19/16 06:19 2.50 Intake and Output 10/19/16 10/19/16 10/20/16 Cumulative From/Thru 15:00 23:00 07:00 10/18/16 10:12 - 10/20/16 06:36 Intake Total 3712 ml 1156 ml 7692 ml Output Total 1000 ml 1300 ml Balance 2712 ml 1156 ml 6392 ml Intake Oral 1520 ml 2344 ml IV Total 2192 ml 1156 ml 5348 ml Output Urine Total 1000 ml 1300 ml # Bowel Movements 1 2 Exam Gen. patient is lying comfortably in hospital bed HEENT: Head is normocephalic atraumatic, Pupils equal and reactive, extraocular movements intact, Lungs clear to auscultation bilaterally Heart regular rate and rhythm without murmurs gallops or rubs Abdomen LLQ abdominal direct tenderness. No rebound tenderness. Positive bowel sounds Extremities pulses are present dorsalis pedis posterior tibialis and radial. tSkin is warm and dry there are no rashes, Psych alert and oriented to person place and time Neuro cranial nerves II through XII are grossly intact Lymph: There is no lymphadenopathy appreciated in the cervical supra infraclavicular regions : no wright IVs and Medications Medications Reviewed: Medications were reviewed in detail Lab and Diagnostics Result Diagram: 10/20/16 1045 10/20/16 1045 X-Rays, CTs and MRIs PROCEDURE: CT ABDOMEN AND PELVIS WITH CONTRAST (PNL-7102) INDICATIONS: LLQ Abd pain IMPRESSION: 1. Distal colonic inflammation and wall thickening is compatible with colitis, which may be infectious or inflammatory (ulcerative colitis/Crohn's) and clinical correlation is recommended. No diverticula are evident to suggest diverticulitis. 2. No bowel obstruction. 3. No abscess. 4. Moderate-sized hiatal hernia. 5. Cholelithiasis and hepatic steatosis. 6. Grade 1/2 spondylolisthesis at L5-S1 related to bilateral L5 pars defects. Dictated by: Aj Phillips M.D. on 10/18/2016 at 12:05 Assessment & Plan 56-year-old lady with past medical history of hypertension, asthma came to emergency room due to abdominal pain and bloody diarrhea of 14 hrs. # colitis,acute,poa -Infectious versus ischemic, likely ischemic at this point given sudden onset and slightly elevated lactate on presentation -Continue IV fluid with NS 100ml/h -hold off antibiotics , stool PCR negative. GI initially considered sigmoidoscopy but held as patient improving .GI reconsidering sigmoidoscopy -Telemetry, sinus rhythm in ED -c.dif negative # History of hypertension, chronic -resume -BP Stable # Remote history of asthma -Stable full code Patient admitted under inpatient status with expected length of stay > 2 midnights for severity of present symptoms, complexities of treatment plan and risk for adverse events disposition: Pending clinical course VTE Mechanical Devices: Intermittant Pneumatic CD Roberto Lopes MD October 20, 2016 18:15
[2016-10-20 18:56] LABS: APPEARANCE,URINE CLEAR (CLEAR,HAZY); COLOR,URINE YELLOW (YELLOW); PH,URINE 6.5 (5.0-8.0)
[2016-10-20 18:57] LABS: OCCULT BLOOD,URINE NEGATIVE (NEGATIVE); UROBILINOGEN,URINE NORMAL (NORMAL)
[2016-10-20 20:40] VITALS: BP 156/85; PULSE 76; RESP 16; O2SAT 97
[2016-10-21] VITALS (11 sets, daily range): BP systolic 124–172; BP diastolic 64–94; PULSE 60–97; RESP 14–20; O2SAT 94–100
[2016-10-21] MEDS: 0.9% Sodium Chloride 1,000 ML IV SCH ×5 (03:08→22:17)
[2016-10-21] MEDS: HYDROcodone-APAP 5-325 mg Tablet PO PRN ×3 (03:13→18:32)
--- NOTE | 2016-10-21 09:40 | PCM.PNMED ---
Subjective Date of Service October 21, 2016 Subjective GI progress note Overnight patient experienced no improvement. Still bloody bowel movements last was yesterday. Denies any fever, chills, chest pain, nausea, vomiting. No appetite. Exam Vital Signs Vital Sign - Last Date Time Temp Pulse Resp B/P Pulse Ox O2 Delivery O2 Flow Rate FiO2 10/21/16 05:20 36.6 71 16 130/77 94 Room Air 10/19/16 06:19 2.50 Intake and Output 10/20/16 10/20/16 10/21/16 Cumulative From/Thru 15:00 23:00 07:00 10/18/16 10:12 - 10/21/16 06:13 Intake Total 600 ml 1740 ml 1064 ml 24158 ml Output Total 1100 ml 1100 ml 3500 ml Balance -500 ml 640 ml 1064 ml 7596 ml Intake Oral 600 ml 1740 ml 4684 ml IV Total 1064 ml 6412 ml Output Urine Total 1100 ml 1100 ml 3500 ml # Bowel Movements 2 2 6 Exam General: Patient awake and alert but anxious Cardio: Regular rate and rhythm CTA bilaterally Abdomen: Moderately severe on palpation of the left lower and mid quadrant with no noticeable tenderness as Extremities: No edema Site: Patient anxious IVs and Medications Medications Reviewed: Medications were reviewed in detail Lab and Diagnostics Result Diagram: 10/20/16 1045 10/20/16 1045 X-Rays, CTs and MRIs PROCEDURE: CT ABDOMEN AND PELVIS WITH CONTRAST ([id number]) INDICATIONS: LLQ Abd pain IMPRESSION: 1. Distal colonic inflammation and wall thickening is compatible with colitis, which may be infectious or inflammatory (ulcerative colitis/Crohn's) and clinical correlation is recommended. No diverticula are evident to suggest diverticulitis. 2. No bowel obstruction. 3. No abscess. 4. Moderate-sized hiatal hernia. 5. Cholelithiasis and hepatic steatosis. 6. Grade 1/2 spondylolisthesis at L5-S1 related to bilateral L5 pars defects. Dictated by: Aj Phillips M.D. on 10/18/2016 at 12:05 Assessment & Plan 56-year-old lady with past medical history of hypertension, asthma came to emergency room due to abdominal pain and bloody diarrhea of 14 hrs. # colitis,acute,poa -Likely ischemic at this point given sudden onset and slightly elevated lactate on presentation -Continue IV fluid with NS 100ml/h -hold off antibiotics , stool PCR negative. -Plan for sigmoidoscopy today at 1600 with enemas scheduled one and 2 hours prior to procedure # History of hypertension, chronic -resume -BP Stable # Remote history of asthma -Stable full code Thank you for allowing us to participate in the care of this patient VTE Mechanical Devices: Intermittant Pneumatic CD Attending Statement Patient seen and examined. Agree with assessment and plan as described by Dr Claudio. Patient to be scoped today. Jf Claudio DO October 21, 2016 09:40 Robert Bojorquez MD October 21, 2016 18:49
[2016-10-21 09:47] LABS: BASOPHILS % (AUTO) 0.3 % (0-3); EOSINOPHILS % (AUTO) 1.5 % (0-5); MONOCYTES % (AUTO) 8.7 % (4-12); Mean Corpuscular Hemoglobin 29.1 pg (27.0-35.0); Mean Corpuscular Volume 86.7 fL (81-100); NEUTROPHILS % (AUTO) 56.9 % (40-74); Platelet Count 271 bil/L (150-400)
[2016-10-21 10:02] LABS: INR 0.94 ratio
[2016-10-21] MEDS ORDERED: Propofol 10,000 mCg/mL 20 mL Inj ONE (11:39)
[2016-10-21] MEDS: Ondansetron 2 mg/mL 2 mL Inj IVPUSH PRN (12:24)
[2016-10-21] MEDS ORDERED: Sodium Biphos-Phos 133 mL Enema RECTAL ONE ×3 (14:00→15:00)
[2016-10-21] MEDS: HYDROmorphone 1 mg/mL Inj IVPUSH PRN (14:33)
[2016-10-21] MEDS ORDERED: fentaNYL-PF 50 mCg/mL 2 mL Inj IVPUSH PRN (14:45)
--- NOTE | 2016-10-21 16:20 | PCM.HPANE ---
Patient Data Surgeon Admitting Provider:Roberto Lopes MD Attending Provider:Roberto Lopes MD Primary Care Physician:[facility] [place]-[facility] Mcgrath Other Provider: Reason for Visit Colitis BLOODY STOOL,ABD PAIN,VOMITING Ht/WT & BMI Height (Feet): 5 Height (Inches): 1.00 Weight (Kilograms): 110.170 Body Mass Index 45.86 Allergies Coded Allergies: Penicillins (Verified Allergy, Unknown, HIVES, 10/18/16) Past Anesthesia History Anesthesia History: Denies:: Abnormal Airway Diabetes History Hx Diabetes?: No MRSA MRSA: No Medications Hypertension Medication: Yes Home Meds Incl Beta Hortencia: No Reported Medications Furosemide 20 Mg Tab20 Mg PO DAILY 30 Days Ref 0 10/18/16 Cholecalciferol (Vitamin D3) (Vitamin D3)400 Unit Jupeuj679 Unit PO DAILY 10/18/16 Estradiol 1 Mg Tablet1 Mg PO DAILY Ref 0 10/18/16 Imipramine HCl 50 Mg Gmaqux833 Mg PO HS Ref 0 10/18/16 Lisinopril 20 Mg Brtxzt10 Mg PO DAILY 30 Days Ref 0 10/18/16 Vitamin E (Dl,Tocopheryl Acet) (Vitamin E)400 Unit Tqbadwd759 Unit PO DAILY 10/18/16 Citalopram 20 Mg Qmntoq74 Mg PO DAILY Ref 0 10/18/16 Discontinued Reported Medications VITAMIN E-Expunged Drug, Do Not Renew! 200 Unit Ewlqptj749 Unit PO DAILY 12/21/11 CHOLECALCIFEROL-Expunged Drug, Do Not Renew! (VITAMIN D3-Expunged Drug, Do Not Renew!)400 Unit/5 Ml Rartqo589 Unit PO DAILY 12/21/11 Estradiol-Expunged Drug, Do Not Renew! (Estrace-Expunged Drug, Do Not Renew!)1 Mg Tablet1 Mg PO DAILY 12/21/11 Potassium Chl-Expunged Drug, Do Not Renew! (D-Cth-Woeghvzf Drug, Do Not Renew!) 20 Meq Tab.er.prt20 Meq PO DAILY 12/21/11 Lisinopril-Expunged Drug, Do Not Renew! 20 Mg Xhzanw85 Mg PO DAILY 12/21/11 Furosemide-Expunged Drug, Do Not Renew! (Lasix-Expunged Drug, Do Not Renew!)20 Mg Zoqlqo10 Mg PO AM 12/21/11 Imipramine-Expunged Drug, Do Not Renew! 25 Mg Dyrxcx655 Mg PO HS 12/21/11 History History of ENT Problems?: No HEENT History: Denies:: Abnormal Airway Denture Type: Full- Upper Teeth Condition: No Teeth Hx of Heart Problems?: Yes Cardiovascular History: Positive for:: Hypertension Hx of Respiratory Problem?: Yes Respiratory History: Positive for:: Asthma Pneumonia Denies:: Tuberculosis Hx Neurologic Problems?: No Hx of GI Problems?: Yes Hx of Problems?: No HX of Peritoneal Dialysis: No Other Pertinent History: Gall Stones Hx Musculoskeletal Problems?: No Hx of Psycho/Social Problems?: Yes Psycho Social History: Positive for:: Anxiety Hx Depression Denies:: Bipolar Disorder Suicide Attempt Hx Surgeries?: Yes Hx Any Other Health Problems?: No Other History: Denies:: Cancer Thyroid Disease History Blood Transfusions: Denies:: Accept Blood Products? Blood Transfusions Hx Diabetes: No Hx Alcohol Use: NoHx Substance Use: No Smoking Status: Current Every Day Smoker (3-5 cigarettes a day) Have You Smoked inLast 12 mo: YesApprox How Many Cigarettes/day: 7 Stop/Bang Risk Assessment Category Category 1A: Patient has history of documented sleep apnea, and HAS NOT received any narcotic, sedative or anesthesia administration during this stay. Category 1B: Patient has history of documented sleep apnea, and HAS received any narcotic , sedative or anesthesia administration during this stay Category 2: Patient has SUSPECTED Obstructive Sleep Apnea, and HAS received any narcotic , sedative or anesthesia administration during this stay. Category 3: Patient has SUSPECTED Obstructive Sleep Apnea and HAS NOT received narcotic, sedative or anesthesia administration during this stay. Category 4: Outpatient in Procedural Areas with known sleep apnea or who screen positive for High Risk via the STOP/BANG questionnaire. Exam Exam Vital Signs Vital Signs Date Time Temp Pulse Resp B/P Pulse Ox O2 Delivery O2 Flow Rate FiO2 10/21/16 13:56 36.4 60 18 164/94 100 Room Air 10/21/16 10:17 36.9 69 18 172/91 100 Room Air General Appearance: Alert, Oriented X3, Cooperative, No Acute Distress HEENT/AIRWAY: MP 2 Lungs: Normal Air Movement Heart: Exam Unremarkable Meds/Labs/Diagnostics Admission Meds Current Medications Nicotine (Nicoderm 14 mg/ 24 Hr Patch) 1 patch DAILY TOPICAL Last administered on 10/21/16t 04:26; Start 10/21/16 at 03:30 Acetaminophen (Tylenol) 975 mg ONCE ONCE PO Last administered on 10/21/16 04: 27; Start 10/21/16 at 03:30; Stop 10/21/16 at 03:55; Status DC Sodium Biphosphate/ Sodium Phosphate (Fleets Enema) 133 ml ONCE ONCE RECTAL Last administered on 10/21/16 14:32; Start 10/21/16 at 14:00; Stop 10/21/16 at 14:01; Status DC Sodium Biphosphate/ Sodium Phosphate (Fleets Enema) 133 ml ONCE ONCE RECTAL Last administered on 10/21/16 14:43; Start 10/21/16 at 15:00; Stop 10/21/16 at 15:01; Status DC Labs Test 10/18/16 10:53 10/18/16 12:09 10/19/16 05:40 10/20/16 18:34 Lipase 23U/L (13-60) Urinalysis Comment None Magnesium Level 1.7mg/dL (1.6-2.6) Urine Color Yellow (YELLOW) Urine Appearance Clear (CLEAR,HAZY) Urine pH 6.5 (5.0-8.0) Urine Specific Lawrence 1.011 (1.003-1.035) Urine Protein Negativemg/dL (NEG,TRACE) Urine Glucose (UA) Negativemg/dL (NEGATIVE) Urine Ketones Negativemg/dL (NEGATIVE) Urine Occult Blood Negative (NEGATIVE) Urine Nitrite Negative (NEGATIVE) Urine Bilirubin Negative (NEGATIVE) Urine Urobilinogen Normalmg/dL (NORMAL) Urine Leukocyte Esterase Negative (NEGATIVE) Urine RBC 0-2/hpf (0-2) Urine WBC 0-5/hpf (0-5) Urine Epithelial Cells Moderate/hpf (NONE-MOD) Urine Crystals None seen (NONE SEEN) Urine Bacteria Few/hpf (NONE-FEW) Urine Hyaline Casts None/lpf (NONE) Urine Granular Casts None seen (NONE SEEN) Urine Waxy Casts None seen (NONE SEEN) Urine Red Blood Cell Casts None seen (NONE SEEN) Urine White Blood Cell Casts None seen (NONE SEEN) Urine Mucus Present (None Seen) Urine Trichomonas None seen (NONE SEEN) Urine Yeast None (NONE SEEN) Urine Culture Reflexed Not indicated Test 10/21/16 09:30 10/21/16 09:40 White Blood Count 6.0th/mm3 (3.8-10.1) Red Blood Count 4.43mil/mm3 (3.90-5.20) Hemoglobin 12.9g/dL (12.0-15.6) Hematocrit 38.4% (35.0-46.0) Mean Corpuscular Volume 86.7fL (81-100) Mean Corpuscular Hemoglobin 29.1pg (27.0-35.0) Mean Corpuscular Hemoglobin Concent 33.6% (32.0-37.0) Red Cell Distribution Width 12.4% (12.3-15.4) Platelet Count 271bil/L (150-400) Neutrophils (%) (Auto) 56.9% (40-74) Lymphocytes (%) (Auto) 32.4% (14-46) Monocytes (%) (Auto) 8.7% (4-12) Eosinophils (%) (Auto) 1.5% (0-5) Basophils (%) (Auto) 0.3% (0-3) Sodium Level 138mEq/L (134-144) Potassium Level 3.6mEq/L (3.5-5.2) Chloride Level 98mEq/L (97-108) Carbon Dioxide Level 26mmol/L (18-29) Blood Urea Nitrogen 5mg/dL (6-24) Creatinine 0.62mg/dL (0.57-1.00) Estimat Glomerular Filtration Rate 143mL/min (>59) Glucose Level 120mg/dL (60-99) Lactic Acid Level 0.9mmol/L (0.4-2.0) Calcium Level 9.0mg/dL (8.5-10.1) Total Bilirubin 0.4mg/dL (0.0-1.2) Aspartate Amino Transf (AST/SGOT) 20U/L (0-50) Alanine Aminotransferase (ALT/SGPT) 25U/L (0-32) Alkaline Phosphatase 71U/L (25-150) Total Protein 6.7g/dL (6.4-8.4) Albumin 3.9g/dL (3.4-5.0) Procalcitonin 0.03ng/mL (0.00-0.08) Prothrombin Time 10.0sec (8.1-12.5) Prothromb Time International Ratio 0.94ratio Plan Impression Patient chart reviewed, patient interviewed and anesthestic plan with risks, benefits, and alternatives discussed, and informed consent obtained. NPO per Anesth. Guidelines: Yes ASA Physical Status: ASA3 Severe Disease Anesthetic Plan: MAC Bene/Risks/Altern/Consents: Yes HP Complete Prior to Induction: Yes Kris Manning MD October 21, 2016 16:20
[2016-10-21] MEDS ORDERED: Lactated Ringer's 1,000 ML IV ONE (17:04)
--- NOTE | 2016-10-21 18:48 | PCM.ANEP1 ---
Post Anesthesia Phase 1 PACU Phase 1 Assessment Date of Service: October 21, 2016 Vital Signs Vital Signs Date Time Temp Pulse Resp B/P Pulse Ox O2 Delivery O2 Flow Rate FiO2 10/21/16 18:11 36.6 67 20 154/91 98 Room Air 10/21/16 17:48 68 16 138/80 98 Room Air 10/21/16 17:36 36.7 73 14 124/64 97 Room Air 10/21/16 13:56 36.4 60 18 164/94 100 Room Air Anesthetic Administered: MAC Level of Alertness: Awake, talking BURKS's with Equal Strength: Yes Pain: No Nausea or Vomiting: No Oxygen Delivery: Room Air Lungs: Normal Air Movement Dermatome Level: Full Sensation Complications: No Follow up Care: No Kris Manning MD October 21, 2016 18:48
--- NOTE | 2016-10-21 19:45 | PCM.PNMED ---
Subjective Date of Service October 21, 2016 Subjective patient continues to have LLQ abdominal pain,diarrhea resolved ,going for sigmoidoscopy later today given persistent pain Exam Vital Signs Vital Sign - Last Date Time Temp Pulse Resp B/P Pulse Ox O2 Delivery O2 Flow Rate FiO2 10/21/16 18:48 Room Air 10/21/16 18:11 36.6 67 20 154/91 98 10/19/16 06:19 2.50 Intake and Output 10/20/16 10/20/16 10/21/16 Cumulative From/Thru 15:00 23:00 07:00 10/18/16 10:12 - 10/21/16 06:13 Intake Total 600 ml 1740 ml 1064 ml 94763 ml Output Total 1100 ml 1100 ml 3500 ml Balance -500 ml 640 ml 1064 ml 7596 ml Intake Oral 600 ml 1740 ml 4684 ml IV Total 1064 ml 6412 ml Output Urine Total 1100 ml 1100 ml 3500 ml # Bowel Movements 2 2 6 Exam Gen. patient is lying comfortably in hospital bed HEENT: Head is normocephalic atraumatic, Pupils equal and reactive, extraocular movements intact, Lungs clear to auscultation bilaterally Heart regular rate and rhythm without murmurs gallops or rubs Abdomen LLQ abdominal direct tenderness. No rebound tenderness. Positive bowel sounds Extremities pulses are present dorsalis pedis posterior tibialis and radial. tSkin is warm and dry there are no rashes, Psych alert and oriented to person place and time Neuro cranial nerves II through XII are grossly intact Lymph: There is no lymphadenopathy appreciated in the cervical supra infraclavicular regions : no wright IVs and Medications Medications Reviewed: Medications were reviewed in detail Lab and Diagnostics Result Diagram: 10/21/1692910/21/16929 X-Rays, CTs and MRIs PROCEDURE: CT ABDOMEN AND PELVIS WITH CONTRAST ([id number]) INDICATIONS: LLQ Abd pain IMPRESSION: 1. Distal colonic inflammation and wall thickening is compatible with colitis, which may be infectious or inflammatory (ulcerative colitis/Crohn's) and clinical correlation is recommended. No diverticula are evident to suggest diverticulitis. 2. No bowel obstruction. 3. No abscess. 4. Moderate-sized hiatal hernia. 5. Cholelithiasis and hepatic steatosis. 6. Grade 1/2 spondylolisthesis at L5-S1 related to bilateral L5 pars defects. Dictated by: Aj Phillips M.D. on 10/18/2016 at 12:05 Assessment & Plan 56-year-old lady with past medical history of hypertension, asthma came to emergency room due to abdominal pain and bloody diarrhea of 14 hrs. # colitis,acute,poa -Likely ischemic at this point given sudden onset and slightly elevated lactate on presentation.patient continues to have pain ,no infectious etiology on stool PCR -Continue IV fluid with NS 100ml/h -hold off antibiotics , stool PCR negative. -Plan for sigmoidoscopy today at 1600 with enemas scheduled one and 2 hours prior to procedure # History of hypertension, chronic -resume -BP Stable # Remote history of asthma -Stable full code disposition:pending hospital course VTE Mechanical Devices: Intermittant Pneumatic CD Roberto Lopes MD October 21, 2016 19:45
--- NOTE | 2016-10-22 00:43 | ENDO ---
[address] [address] ENDOSCOPY PROCEDURE PATIENT: DEON LUNDY : 1960 MR#: [id number] ADMIT: 10/18/2016 JOB ID: [id number] DATE OF PROCEDURE: 10/21/2016 PROCEDURE: Flexible sigmoidoscopy with biopsies. INDICATIONS: A 56-year-old female with a clinical presentation concerning for ischemic colitis. The patient's family wished further diagnostic examination prior to discharge. EQUIPMENT: [employer]. SEDATION: Monitored anesthesia as provided by Kris Manning MD. COMPLICATIONS: None identified. BOWEL PREPARATION: Fair at best (this was accomplished by way of two Fleet's enemas). PROCEDURE INFORMATION: After the risks and benefits were explained, written and verbal informed consent was obtained. The patient was brought into the endoscopy suite and placed into the left lateral decubitus position. Sedation was achieved as above. A digital rectal examination was accomplished. Moderate internal hemorrhoids noted. The scope was introduced into the rectum and advanced under direct visualization to about 60 cm from the anal verge into the transverse. We then slowly withdrew to carefully examine the mucosa for any defects or lesions. Retroflexed views were avoided in the rectum. Multiple direct views were made through the dentate line. The colon was decompressed. The scope was removed from the patient who tolerated the procedure reasonably well. FINDINGS: Retained yellow malodorous stool debris identified. Mostly liquid and easily able to be suctioned out of the way. No proctitis. No distal colitis. From about 30-50 cm there was some obvious patchy inflammation consistent with ischemic colitis. A biopsy was taken from this location for histologic confirmation. Beyond about 50 cm from the anal verge the mucosa was largely normal. Photographs were taken. ENDOSCOPIC DIAGNOSES: 1. Segmental colitis consistent with ischemic injury. 2. Hemorrhoids. RECOMMENDATIONS: 1. Await histopathology. 2. Continue supportive care as before. 3. Full colonoscopy in 6-8 weeks with anesthesia.
[2016-10-22] MEDS: HYDROcodone-APAP 5-325 mg Tablet PO PRN ×2 (01:45→10:16)
[2016-10-22] MEDS: 0.9% Sodium Chloride 1,000 ML IV SCH (03:42)
[2016-10-22 04:28] VITALS: BP 134/74; PULSE 77; RESP 18; O2SAT 92
[2016-10-22 08:00] VITALS: PULSE 69
[2016-10-22 10:44] VITALS: BP 146/87; PULSE 76; RESP 18; O2SAT 95
--- NOTE | 2016-10-22 10:53 | PCM.DIMED ---
Discharge Instructions Date of Service October 22, 2016 Dates of Hospitalization October 18, 2016 at 16:59 Discharge Diagnosis Discharge Diagnosis # Ischemic colitis,acute,poa # History of hypertension, chronic # Remote history of asthma Test Results Sigmoidoscopy consistent with ischemic colitis. Diet Low fat, Low Sodium Activity Limited until seen by PCP Call your provider Fever or Chills, Shortness of breath, Bleeding, Chest pain, Vomitting, Excessive diarrhea, Weakness (unilateral) Patient Instructions you were hospitalized due to his abdominal pain secondary to ischemic colitis. Sigmoidoscopy is consistent his ischemic colitis. Biopsy taken. Please follow- up biopsy results with Dr. Bojorquez. You also need full colonoscopy in 6 weeks. Please follow-up with Dr. Bojorquez for that. Please follow-up with PCP in 1 week and discuss hospitalization. [facility] Follow-up with PCP in: 1 week Provider: Robert Bojorquez MD Follow-up in: 2 weeks Roberto Lopes MD October 22, 2016 10:53
[2016-10-22] MEDS ORDERED: HYDR-4003 PO (10:54)
--- NOTE | 2016-10-22 11:01 | PCM.PNMED ---
Subjective Date of Service October 22, 2016 Subjective GI progress note Patient underwent flex sigmoid yesterday with findings consistent with segmental colitis due to ischemic injury as well as hemorrhoids. The patient states that her abdomen feels much better and her last bowel movement did not have blood. Patient's tolerating food pretty well so far. We await histopathology report this will likely not be done before the patient is ready to return home. Exam Vital Signs Vital Sign - Last Date Time Temp Pulse Resp B/P Pulse Ox O2 Delivery O2 Flow Rate FiO2 10/22/16 10:44 36.8 76 18 146/87 95 Room Air 10/19/16 06:19 2.50 Intake and Output 10/21/16 10/21/16 10/22/16 Cumulative From/Thru 15:00 23:00 07:00 10/18/16 10:12 - 10/22/16 06:16 Intake Total 400 ml 2484 ml 1344 ml 10941 ml Output Total 800 ml 550 ml 920 ml 5770 ml Balance -400 ml 1934 ml 424 ml 9554 ml Intake Oral 400 ml 1200 ml 400 ml 6684 ml IV Total 1284 ml 944 ml 8640 ml Output Urine Total 800 ml 550 ml 920 ml 5770 ml # Voids 2 2 # Bowel Movements 3 3 12 Exam General: Patient awake and alert but anxious Cardio: Regular rate and rhythm Respiratory: CTA bilaterally Abdomen: Obese, nontender, nondistended, positive bowel sounds Extremities: No edema Psych: Appropriate mood and affect IVs and Medications Medications Reviewed: Medications were reviewed in detail Lab and Diagnostics Result Diagram: 10/21/1692910/21/16929 X-Rays, CTs and MRIs PROCEDURE: CT ABDOMEN AND PELVIS WITH CONTRAST (PNL-7102) INDICATIONS: LLQ Abd pain IMPRESSION: 1. Distal colonic inflammation and wall thickening is compatible with colitis, which may be infectious or inflammatory (ulcerative colitis/Crohn's) and clinical correlation is recommended. No diverticula are evident to suggest diverticulitis. 2. No bowel obstruction. 3. No abscess. 4. Moderate-sized hiatal hernia. 5. Cholelithiasis and hepatic steatosis. 6. Grade 1/2 spondylolisthesis at L5-S1 related to bilateral L5 pars defects. Dictated by: Aj Phillips M.D. on 10/18/2016 at 12:05 Assessment & Plan Assessment/plan Ischemic colitis colitis with unknown etiology -Confirmed by flexible sigmoidoscopy -Patient's diabetic, smoker, history of hypertension; close follow-up with PCP to address these 3 risk factors for vascular disease recommended -Although she has never had it here, consideration should probably be given to Holter monitoring to assess for atrial fibrillation -We await the histopathology report from the sigmoidoscopy sign -Patient will need a full colonoscopy in 6-8 weeks -Please have patient follow-up with GI in 2 weeks Thank you for allowing us to participate in the care of this patient [employer] Devices: Intermittant Pneumatic CD Attending Statement Patient was d/c'd prior to my availability to round at bedside. I did not personally see Marianne prior to d/c. Agree with assessment and plan as per Dr Claudio Please note the above comment was changed. The original notation of "patient having been seen and examined was incorrect". Jf Claudio DO October 22, 2016 11:01 Robert Bojorquez MD October 22, 2016 16:59
[2016-10-22] MEDS ORDERED: ONDA4TAB9 PO (11:29)
--- NOTE | 2016-10-22 12:42 | PCM.DC.MED ---
Discharge Summary Date of Service October 22, 2016 Dates of Hospitalization Date of Hospital Admission October 18, 2016 at 16:59 Date of Discharge: October 22, 2016 Providers: Admitting Physician: Roberto Nettles MD Primary Care Physician: [facility] Attending Physician: Roberto Nettles MD Diagnosis at Time of Discharge Diagnosis at Time of Discharge # Ischemic colitis,acute,poa # History of hypertension, chronic # Remote history of asthma Consultations GI Dr Bojorquez Procedures XRay, CTs & MRIs PROCEDURE: CT ABDOMEN AND PELVIS WITH CONTRAST ([id number]) INDICATIONS: LLQ Abd pain IMPRESSION: 1. Distal colonic inflammation and wall thickening is compatible with colitis, which may be infectious or inflammatory (ulcerative colitis/Crohn's) and clinical correlation is recommended. No diverticula are evident to suggest diverticulitis. 2. No bowel obstruction. 3. No abscess. 4. Moderate-sized hiatal hernia. 5. Cholelithiasis and hepatic steatosis. 6. Grade 1/2 spondylolisthesis at L5-S1 related to bilateral L5 pars defects. Dictated by: Aj Phillips M.D. on 10/18/2016 at 12:05 Invasive Procedures DATE OF PROCEDURE: 10/21/2016 PROCEDURE: Flexible sigmoidoscopy with biopsies. INDICATIONS: A 56-year-old female with a clinical presentation concerning for ischemic colitis. The patient's family wished further diagnostic examination prior to discharge. EQUIPMENT: [id number]. SEDATION: Monitored anesthesia as provided by Kris Manning MD. COMPLICATIONS: None identified. BOWEL PREPARATION: Fair at best (this was accomplished by way of two Fleet's enemas). PROCEDURE INFORMATION: After the risks and benefits were explained, written and verbal informed consent was obtained. The patient was brought into the endoscopy suite and placed into the left lateral decubitus position. Sedation was achieved as above. A digital rectal examination was accomplished. Moderate internal hemorrhoids noted. The scope was introduced into the rectum and advanced under direct visualization to about 60 cm from the anal verge into the transverse. We then slowly withdrew to carefully examine the mucosa for any defects or lesions. Retroflexed views were avoided in the rectum. Multiple direct views were made through the dentate line. The colon was decompressed. The scope was removed from the patient who tolerated the procedure reasonably well. FINDINGS: Retained yellow malodorous stool debris identified. Mostly liquid and easily able to be suctioned out of the way. No proctitis. No distal colitis. From about 30-50 cm there was some obvious patchy inflammation consistent with ischemic colitis. A biopsy was taken from this location for histologic confirmation. Beyond about 50 cm from the anal verge the mucosa was largely normal. Photographs were taken. ENDOSCOPIC DIAGNOSES: 1. Segmental colitis consistent with ischemic injury. 2. Hemorrhoids. RECOMMENDATIONS: 1. Await histopathology. 2. Continue supportive care as before. 3. Full colonoscopy in 6-8 weeks with anesthesia. Robert Bojorquez MD 10/21/16 [id number] eport status: Draft Transcribed by: BALTA 10/22/16 0042 Brief History 56-year-old anxious female with a history of hypertension and vaginal bleeding s /p hysterectomy months ago with negative workup who presents to emergency department due to increased crampy abdominal pain in the left lower quadrant with acute onset of hematochezia, nausea, and vomiting 1. Patient states that the pain began Tuesday evening with one episode of hematochezia and she presented to the ED on Tuesday morning with an additional episode. Overnight patient also had another episode of jacqui bright red bloody diarrhea without clots. Patient states that when this started she began to feel nauseous and had 1 nonbloody emesis, and diaphoresis was reported facial swelling. No fevers , chills, or other signs of systemic infection. Patient denies any close sick contacts. Patient's recent episode of vaginal bleeding was not worked up with CT of the abdomen with no identifiable cause. This occurred 10 years after the patient had a hysterectomy and salpingo-oophorectomy.? This was vaginal or rectal bleeding at this time. Today the patient denies fevers, chest pain, nausea, vomiting, diffuse abdominal pain, dizziness, or rectal pain. Patient does state that on palpation her left lower quadrant is moderately tender in that when she gets up from a chair she does experience lightheadedness. Patient denies any recent travel. Patient has never had a colonoscopy. Patient is on hormone therapy but denies any history of clots or irregular cardiac rhythms. Patient has never been on anticoagulation On admission the patient had a very mild leukocytosis which is now resolved, as well as a lactic acidosis 2.5 that is now resolved as well. CT was consistent with distal colitis, however PCR of the stool was negative for an infectious agent. Patient was given Dilaudid for pain but has not had an opioid in almost 24 hours Gyrus consult for evaluation. Hospital Course 56-year-old lady with past medical history of hypertension, asthma came to emergency room due to abdominal pain and bloody diarrhea of 14 hrs. # Ischemic colitis,acute,poa -Likely ischemic at this point given sudden onset and slightly elevated lactate on presentation.patient continues to have pain ,no infectious etiology on stool PCR . Flex sigmoidoscopy consistent with ischemic colitis. Biopsy taken. Follow-up biopsy results with Dr Bojorquez. Also follow-up colonoscopy in 6 weeks. -Treated with IV fluid with NS 100ml/h -held off antibiotics , stool PCR negative. -Discussed with GI, area of ischemia near water shed area and unlikely due to embolic event. Telemetry no arrhythmia during hospitalization. No indication for outpatient Holter monitoring . # History of hypertension, chronic -resume lisinopril -BP Stable # Remote history of asthma -Stable full code disposition discharged home Condition on discharge stable Exam Vital Signs (Last) Date Time Temp Pulse Resp B/P Pulse Ox O2 Delivery O2 Flow Rate FiO2 10/22/16 10:44 36.8 76 18 146/87 95 Room Air 10/19/16 06:19 2.50 Exam Gen. patient is lying comfortably in hospital bed HEENT: Head is normocephalic atraumatic, Pupils equal and reactive, extraocular movements intact, Lungs clear to auscultation bilaterally Heart regular rate and rhythm without murmurs gallops or rubs Abdomen LLQ abdominal mild direct tenderness. Much improved. No rebound tenderness. Positive bowel sounds Extremities pulses are present dorsalis pedis posterior tibialis and radial. tSkin is warm and dry there are no rashes, Psych alert and oriented to person place and time Neuro cranial nerves II through XII are grossly intact Lymph: There is no lymphadenopathy appreciated in the cervical supra infraclavicular regions : no wright Test 10/18/16 10:53 10/18/16 12:09 10/19/16 05:40 10/20/16 18:34 Lipase 23U/L (13-60) Urinalysis Comment None Magnesium Level 1.7mg/dL (1.6-2.6) Urine Color Yellow (YELLOW) Urine Appearance Clear (CLEAR,HAZY) Urine pH 6.5 (5.0-8.0) Urine Specific Gregory 1.011 (1.003-1.035) Urine Protein Negativemg/dL (NEG,TRACE) Urine Glucose (UA) Negativemg/dL (NEGATIVE) Urine Ketones Negativemg/dL (NEGATIVE) Urine Occult Blood Negative (NEGATIVE) Urine Nitrite Negative (NEGATIVE) Urine Bilirubin Negative (NEGATIVE) Urine Urobilinogen Normalmg/dL (NORMAL) Urine Leukocyte Esterase Negative (NEGATIVE) Urine RBC 0-2/hpf (0-2) Urine WBC 0-5/hpf (0-5) Urine Epithelial Cells Moderate/hpf (NONE-MOD) Urine Crystals None seen (NONE SEEN) Urine Bacteria Few/hpf (NONE-FEW) Urine Hyaline Casts None/lpf (NONE) Urine Granular Casts None seen (NONE SEEN) Urine Waxy Casts None seen (NONE SEEN) Urine Red Blood Cell Casts None seen (NONE SEEN) Urine White Blood Cell Casts None seen (NONE SEEN) Urine Mucus Present (None Seen) Urine Trichomonas None seen (NONE SEEN) Urine Yeast None (NONE SEEN) Urine Culture Reflexed Not indicated Test 10/21/16 09:30 10/21/16 09:40 White Blood Count 6.0th/mm3 (3.8-10.1) Red Blood Count 4.43mil/mm3 (3.90-5.20) Hemoglobin 12.9g/dL (12.0-15.6) Hematocrit 38.4% (35.0-46.0) Mean Corpuscular Volume 86.7fL (81-100) Mean Corpuscular Hemoglobin 29.1pg (27.0-35.0) Mean Corpuscular Hemoglobin Concent 33.6% (32.0-37.0) Red Cell Distribution Width 12.4% (12.3-15.4) Platelet Count 271bil/L (150-400) Neutrophils (%) (Auto) 56.9% (40-74) Lymphocytes (%) (Auto) 32.4% (14-46) Monocytes (%) (Auto) 8.7% (4-12) Eosinophils (%) (Auto) 1.5% (0-5) Basophils (%) (Auto) 0.3% (0-3) Sodium Level 138mEq/L (134-144) Potassium Level 3.6mEq/L (3.5-5.2) Chloride Level 98mEq/L (97-108) Carbon Dioxide Level 26mmol/L (18-29) Blood Urea Nitrogen 5mg/dL (6-24) Creatinine 0.62mg/dL (0.57-1.00) Estimat Glomerular Filtration Rate 143mL/min (>59) Glucose Level 120mg/dL (60-99) Lactic Acid Level 0.9mmol/L (0.4-2.0) Calcium Level 9.0mg/dL (8.5-10.1) Total Bilirubin 0.4mg/dL (0.0-1.2) Aspartate Amino Transf (AST/SGOT) 20U/L (0-50) Alanine Aminotransferase (ALT/SGPT) 25U/L (0-32) Alkaline Phosphatase 71U/L (25-150) Total Protein 6.7g/dL (6.4-8.4) Albumin 3.9g/dL (3.4-5.0) Procalcitonin 0.03ng/mL (0.00-0.08) Prothrombin Time 10.0sec (8.1-12.5) Prothromb Time International Ratio 0.94ratio Discharge Medications Discharge Medications Cholecalciferol (Vitamin D3) (Vitamin D3) 400 Unit Tablet 400 UNIT PO DAILY ( Reported) Citalopram (Citalopram) 20 Mg Tablet 20 MG PO DAILY (Reported) Estradiol (Estradiol) 1 Mg Tablet 1 MG PO DAILY (Reported) Furosemide (Furosemide) 20 Mg Tab 20 MG PO DAILY (Reported) Imipramine HCl (Imipramine HCl) 50 Mg Tablet 100 MG PO HS (Reported) Lisinopril (Lisinopril) 20 Mg Tablet 20 MG PO DAILY (Reported) Vitamin E (Dl,Tocopheryl Acet) (Vitamin E) 400 Unit Capsule 400 UNIT PO DAILY ( Reported) As needed Hydrocodone-Acetaminophen 5-325 mg (Hydrocodone-Acetaminophen 5-325 mg) 1 Each Tablet 1 TABLET PO Q4 PRN PRN For Mild Pain Prescribed by: ROBERTO NETTLES MD Ondansetron ODT (Zofran ODT) 4 Mg Tablet 4 MG PO Q4H PRN PRN For Nausea Prescribed by: ROBERTO NETTLES MD Followup Plan Disposition: home Discharge Diet: Low fat, Low Sodium Discharge Activity: Limited until seen by PCP Patient Instructions you were hospitalized due to his abdominal pain secondary to ischemic colitis. Sigmoidoscopy is consistent his ischemic colitis. Biopsy taken. Please follow- up biopsy results with Dr. Bojorquez. You also need full colonoscopy in 6 weeks. Please follow-up with Dr. Bojorquez for that. Please follow-up with PCP in 1 week and discuss hospitalization. [facility] Follow-up with PCP in: 1 week Provider: Robert Bojorquez MD Follow-up in: 2 weeks Time spent 35 minutes copies to: [facility]; Robert Bojorquez MD, Melaku MD October 22, 2016 12:42
--- NOTE | 2016-10-26 13:09 | PATH ---
SURGICAL PATHOLOGY Attending Physician:Rodney Licona CASE STATUS: Signed Out PATIENT NAME: DEON LUNDY PID: [id number] : 1960 DATE COLLECTED:10/21/2016 00:00 SPECIMEN: Colon, Biopsy CLINICAL HISTORY: 1.DESCENDING COLON BX FINAL DIAGNOSIS: 1.DESCENDING COLON, BIOPSY: MILDLY ACTIVE COLITIS WITH ISCHEMIA-TYPE CHANGES, SEE COMMENT. Negative for granulomas, dysplasia and malignancy. ICD10 code R10.9 NOTE: The differential diagnosis includes ischemia due to trauma/prolapse, true vascular ischemia, and ischemia due to infection (i.e., enterohemorrhagic E. coli, C. difficile, etc.). GROSS DESCRIPTION: The specimen is received in one formalin filled container labeled with the patient's name, sublabeled "descending colon" and consists of a 0.3 x 0.2 x 0.2 CM portion of tissue which is entirely submitted in one cassette. 10/22/2016 DAC MICRO DESCRIPTION: See diagnosis. ICD-9 CODES: CPT CODES: 1: 25071 Electronically Signed Out Gladys Henderson MD [facility] [address], [place] [address] Technical component performed at [facility], [address] [place] [address] Ave[address], [place], [address]
== END 2016-10-22 11:40 | disposition home or self-care (01) | DRG 394 ==
LOC: SED 10:06 → OBSVTOIN 16:59 → OSC 16:59
PROVIDERS: ADMIT Internal Medicine; ATTEND Internal Medicine
PROC: 0DBN8ZX Excision of Sigmoid Colon, Via Natural or Artificial Opening Endoscopic, Diagnostic (ICD-10-PCS; principal; 2016-10-21 16:30)
DX: K55.039 Acute (reversible) ischemia of large intestine, extent unspecified (principal); K92.1 Melena; F17.210 Nicotine dependence, cigarettes, uncomplicated; I10 Essential (primary) hypertension